=== PATIENT | female | born 1940 | race Caucasian/White ===

== ENCOUNTER 2016-10-14 09:48 | Outpatient (CLI) | payer MEDICARE ==
[~2016-10-14] VITALS: Ht 160 cm; Wt 61.4 kg
[~2016-10-14 09:48] MED LIST: CALCIUM 250+D T1 TAB PO; MULTIPLE VITAMI1 TA1 PO; SYNTHROID50 MCG PO; VITAMIN B COMPL1 TAB PO; VITAMIN B-121000 MCG PO; VITAMIN D31000 UNI2 PO
--- NOTE | 2016-10-14 11:18 | NUR ---
#22 GUAGE IV STARTED X 1 STICK AND RECLAST BEGAN. READING MATERIAL GIVEN ON RECLAST TO PATIENT.
[2016-10-14 11:37] VITALS: BP 127/73; Ht 160 cm; Wt 61.4 kg
[2016-10-14] MEDS ORDERED: BIOTIN5 MG PO (11:45)
--- NOTE | 2016-10-14 11:48 | NUR ---
IV INFUSION COMPLETED. IV REMOVED INTACT.
--- NOTE | 2016-10-14 12:00 | NUR ---
DISCHARGE INSTRUCTIONS GIVEN. DISCHARGED TO HOME.
== END 2016-10-14 12:00 | disposition home or self-care (01) ==
LOC: D.OPS 09:48
DX: M81.0 Age-related osteoporosis without current pathological fracture (principal)

== ENCOUNTER → 2017-10-06 08:02 | Outpatient (CLI) | payer MEDICARE ==
[2016-10-14 11:37] VITALS: BMI 23.9
[~2017-10-06 08:02] MED LIST changes: +BIOTIN5 MG PO
== END | disposition home or self-care (01) ==
LOC: D.US 08:00
DX: R74.8 Abnormal levels of other serum enzymes (principal)

== ENCOUNTER → 2017-11-05 15:59 | Outpatient (CLI) | payer MEDICARE ==
[2016-10-14 11:37] VITALS: BMI 23.9
[2017-11-05 17:04] LABS: % SATURATION 28 % (15-55); IRON 102 ug/dl (35-150); TOTAL IRON BIND CAPACITY 360 ug/dl (260-445); UNSAT IRON BIND CAPACITY 258 ug/dl (150-375)
[2017-11-05 17:18] LABS: ALBUMIN 4.1 g/dL (3.4-5.0); BILIRUBIN - DIRECT 0.13 mg/dL (0.00-0.30); BILIRUBIN - INDIRECT 0.24 mg/dL (0.00-1.00); BILIRUBIN - TOTAL 0.37 mg/dL (0.2-1.3); PROTEIN - SERUM 6.9 g/dL (6.4-8.2)
[2017-11-08 11:13] LABS: FOLATE (FOLIC ACID) - SERUM >20.0 ng/mL (>3.0)
[2017-11-08 12:10] LABS: ALPHA FETOPROTEIN -(TUMOR MRK) 3.9 ng/mL (0.0-8.3); ANA REFLEX - DIRECT Negative (Negative)
[2017-11-11 14:22] LABS: SMOOTH MUSCLE ABS (ACTIN) 9 Units (0-19)
== END | disposition home or self-care (01) ==
LOC: D.LAB 15:45
PROVIDERS: Internal Medicine Gastroenterology
DX: R93.8 Abnormal findings on diagnostic imaging of other specified body structures (principal); R74.8 Abnormal levels of other serum enzymes; K76.0 Fatty (change of) liver, not elsewhere classified; D75.89 Other specified diseases of blood and blood-forming organs

== ENCOUNTER → 2018-01-24 09:05 | Outpatient (CLI) | payer MEDICARE ==
[2016-10-14 11:37] VITALS: BMI 23.9
[2018-01-24 10:06] LABS: ALBUMIN 3.8 g/dL (3.4-5.0); BILIRUBIN - DIRECT 0.16 mg/dL (0.00-0.30); BILIRUBIN - INDIRECT 0.44 mg/dL (0.00-1.00); BILIRUBIN - TOTAL 0.6 mg/dL (0.2-1.3)
== END | disposition home or self-care (01) ==
LOC: D.LAB 09:05
PROVIDERS: Internal Medicine Gastroenterology
DX: K74.69 Other cirrhosis of liver (principal); R79.89 Other specified abnormal findings of blood chemistry

== ENCOUNTER 2018-11-11 10:49 | Outpatient (CLI) | payer MEDICARE ==
[~2018-11-11] VITALS: Ht 160 cm; Wt 61.4 kg
[2018-11-11 11:15] VITALS: Ht 160 cm; Wt 61.4 kg
--- NOTE | 2018-11-11 16:43 | NUR ---
1220-IC D/C. DISCHARGE INSTRUCTIONS REVIEWED. 1240-RESP WITH EASE, NO RASH/ITCHING OR PALPITATIONS. DC HOME AMBULATORY.
== END 2018-11-11 12:40 | disposition home or self-care (01) ==
LOC: D.OPS 10:49
PROVIDERS: ATTEND Family Medicine
DX: M81.0 Age-related osteoporosis without current pathological fracture (principal)

== ENCOUNTER → 2019-09-06 12:46 | Outpatient (CLI) | payer MEDICARE ==
[2018-11-11 11:15] VITALS: BMI 23.9
== END | disposition home or self-care (01) ==
LOC: D.US 12:46
PROVIDERS: ATTEND Family Medicine
DX: M79.604 Pain in right leg (principal)

== ENCOUNTER → 2020-05-17 12:56 | Outpatient (CLI) | payer MEDICARE ==
[2018-11-11 11:15] VITALS: BMI 23.9
== END | disposition home or self-care (01) ==
LOC: D.US 12:56
PROVIDERS: ATTEND Family Medicine
DX: I80.9 Phlebitis and thrombophlebitis of unspecified site (principal)